=== PATIENT | female | born 1945 | race Caucasian/White ===

== ENCOUNTER 2020-12-24 08:33 | Outpatient (CLI) | payer MEDICARE ==
[~2020-12-24 08:33] MED LIST: CIPR500T87 PO; LOSA1TAB19 PO; METO50TA82 PO
== END 2020-12-24 23:59 | disposition home or self-care (01) ==
LOC: CFH 08:33
PROVIDERS: ATTEND Physician Assistant
DX: Z12.31 Encounter for screening mammogram for malignant neoplasm of breast (principal); N95.9 Unspecified menopausal and perimenopausal disorder; M85.88 Other specified disorders of bone density and structure, other site
CPT/HCPCS: 77063; 77067; 77080